=== PATIENT | female | born 1980 | race Caucasian/White ===

== ENCOUNTER 2018-11-02 14:32 | Observation (INO) ==
[2018-11-02] MEDS ORDERED: ONDANSETRON 4 MG/2 ML VIAL IV PRN ×3 (14:47→17:14)
[2018-11-02] MEDS ORDERED: SODIUM CHLORIDE 0.9% 1,000 ML IV STA (14:47)
[2018-11-02] MEDS ORDERED: HYDROmorphone 2 MG/1 ML VIAL IV STA (14:48)
[2018-11-02] MEDS ORDERED: CLINDAMYCIN INJ 50 ML IV ONE (16:20)
[2018-11-02] MEDS ORDERED: LEVOFLOXACIN INJ 100 ML IV ONE (16:20)
[2018-11-02] MEDS ORDERED: HYDROmorphone 2 MG/1 ML VIAL IV PRN (16:59)
[2018-11-02] MEDS ORDERED: SEVOFLURANE 1 UNIT/15 MINUTE INH ONE (17:13)
[2018-11-02] MEDS ORDERED: PROPOFOL 200 MG/20 ML VIAL IV ONE (17:13)
[2018-11-02] MEDS ORDERED: HYDROmorphone 2 MG/1 ML VIAL ONE (17:14)
[2018-11-02] MEDS ORDERED: DEXAMETHASONE 4 MG/1 ML VIAL ONE (17:14)
[2018-11-02] MEDS ORDERED: ePHEDrine 50 MG/ML AMP ONE (17:14)
[2018-11-02] MEDS ORDERED: ONDANSETRON 4 MG/2 ML VIAL ONE ×2 (17:14)
[2018-11-02] MEDS ORDERED: MIDAZOLAM 2 MG/2 ML VIAL ONE (17:14)
[2018-11-02] MEDS ORDERED: fentaNYL 100 MCG/2 ML VIAL ONE (17:14)
[2018-11-02] MEDS ORDERED: SUCCINYLCHOLINE 200 MG/10 ML VIAL ONE (17:15)
[2018-11-02] MEDS ORDERED: KETOROLAC 30 MG/1 ML VIAL ONE (17:15)
[2018-11-02] MEDS ORDERED: NEOSTIGMINE 10 MG/10 ML VIAL ONE (17:15)
[2018-11-02] MEDS ORDERED: LACTATED RINGERS 1,000 ML IV ONE (17:15)
[2018-11-02] MEDS ORDERED: PHENYLEPHRINE 1 MG/10 ML SYRINGE IV ONE (17:15)
[2018-11-02] MEDS ORDERED: ROCURONIUM 100 MG/10 ML VIAL IV ONE (17:15)
[2018-11-02] MEDS ORDERED: GLYCOPYRROLATE 0.4 MG/2 ML VIAL ONE (17:15)
[2018-11-02] MEDS: HYDROmorphone 2 MG/1 ML VIAL IV PRN ×3 (17:23→17:43)
[2018-11-02] MEDS ORDERED: LACTATED RINGERS 1,000 ML IV SCH (18:30)
[2018-11-02] MEDS: CLINDAMYCIN INJ 900 MG in PREMIX 1 EACH IV SCH (20:08)
[2018-11-03] MEDS: CLINDAMYCIN INJ 900 MG in PREMIX 1 EACH IV SCH (03:38)
[2018-11-03] MEDS: SIMETHICONE CHEW 80 MG TABLET PO PRN ×2 (03:55→09:06)
[2018-11-03 05:22] LABS: Hematocrit 32.5 VOL% (35.7-47.0); Hemoglobin 10.3 GM/DL (12.0-16.0); Red Blood Count 3.76 MC/CUMM (3.8-5.5); White Blood Count 15.4 T/CUMM (4-12)
[2018-11-03 05:23] LABS: Basophils % 0.1 % (0.0-0.8); Immature Granulocytes % 0.5 %; Immature Granulocytes Absolute 0.08 #; Lymphocytes # 1.1 10*3/uL (1.4-4.0); Lymphocytes % 7.4 % (21.3-54.2); Mean Corpuscular HGB Conc 31.7 GM/DL (32-36); Mean Corpuscular Hemoglobin 27 PG (27-34); Mean Corpuscular Volume 86.4 FL (87-102); Mean Platelet Volume 10.1 FL (9.6-12.0); Monocytes # 0.4 10*3/uL (0.11-0.8); Monocytes % 2.4 % (1.7-12.7); Neutrophils # 13.8 10*3/uL (1.4-7.4); Neutrophils % 89.6 % (38.7-73.9); Platelet Count 268 T/CUMM (130-400); Red Cell Distribution Width 14.7 % (9.3-17.3)
[2018-11-03 07:49] VITALS: BP 96/48
[2018-11-03] MEDS ORDERED: RHO(D) IMMUNE GLOBULIN 300 MCG SYRINGE IM ONE (07:57)
[2018-11-03] MEDS ORDERED: DOCUSATE SODIUM 100 MG CAPSULE PO SCH (09:00)
== END 2018-11-03 10:30 | disposition home or self-care (01) ==
LOC: N.ED 14:32 → N.EDINP 15:11 → INTOOBSV 15:11 → N.OB 15:56
PROVIDERS: ADMIT Specialist; ATTEND Specialist

== ENCOUNTER 2019-12-15 21:20 | Inpatient (IN) ==
[2019-12-15] MEDS ORDERED: ONDANSETRON 4 MG/2 ML VIAL IV PRN (21:35)
[2019-12-15] MEDS ORDERED: BUTORPHANOL 2 MG/ML VIAL IV PRN (21:35)
[2019-12-15] MEDS ORDERED: MEPERIDINE 50 MG/1 ML VIAL IV PRN (21:35)
[2019-12-15 22:19] LABS: Basophils % 0.4 % (0.0-0.8); Eosinophils # 0.2 10*3/uL (0.0-0.87); Eosinophils % 1.3 % (0.00-10.9); Hematocrit 36.3 VOL% (35.7-47.0); Hemoglobin 11.8 GM/DL (12.0-16.0); Immature Granulocytes % 0.4 %; Immature Granulocytes Absolute 0.05 #; Lymphocytes # 2.1 10*3/uL (1.4-4.0); Lymphocytes % 18.2 % (21.3-54.2); Mean Corpuscular HGB Conc 32.5 GM/DL (32-36); Mean Corpuscular Volume 87.1 FL (87-102); Mean Platelet Volume 10.7 FL (9.6-12.0); Monocytes % 5.7 % (1.7-12.7); Platelet Count 272 T/CUMM (130-400); Red Blood Count 4.17 MC/CUMM (3.8-5.5); Red Cell Distribution Width 13.8 % (9.3-17.3); White Blood Count 11.3 T/CUMM (4-12)
[2019-12-15 22:41] LABS: Alanine Aminotransferase 16 U/L (13-56); Albumin 2.5 G/DL (3.4-5.0); Alkaline Phosphatase 102 U/L (45-117); Aspartate Amino Transferase 18 U/L (0-37); Bilirubin,Total < 0.39 MG/DL (0.2-1.0); Blood Urea Nitrogen 10 MG/DL (7-18); Calcium 9.3 MG/DL (8.5-10.1); Estimated Glom Filtration Rate 153 ML/MIN; Glucose 114 MG/DL (74-106); Total Protein 6.6 G/DL (6.4-8.3)
[2019-12-16] MEDS ORDERED: NALOXONE 0.4 MG/ML VIAL IV PRN (07:22)
[2019-12-16] MEDS ORDERED: PROMETHAZINE 25 MG/1 ML VIAL IM PRN (07:22)
[2019-12-16] MEDS ORDERED: diphenhydrAMINE 50 MG/1 ML VIAL IV PRN (07:22)
[2019-12-16] MEDS ORDERED: FAMOTIDINE 20 MG/2 ML VIAL IV ONE (07:22)
[2019-12-16] MEDS ORDERED: CITRIC ACID/SODIUM CITRATE 30 ML UDCUP PO ONE (07:22)
[2019-12-16] MEDS ORDERED: hydrOXYzine HCL 25 MG/1 ML VIAL IM PRN (07:22)
[2019-12-16] MEDS ORDERED: ePHEDrine 50 MG/ML AMP IV PRN ×2 (07:22)
[2019-12-16] MEDS ORDERED: fentaNYL 2 MCG/ROPIV 0.2% EPID 100 ML EPIDURAL SCH (07:30)
[2019-12-16] MEDS: LACTATED RINGERS 1,000 ML IV SCH ×2 (07:42→08:47)
[2019-12-16] MEDS ORDERED: OXYTOCIN/LR 20 UNIT/1,000 ML BAG IV SCH (08:30)
[2019-12-16 10:20] LABS: Apearance,Urine CLEAR (Clear); Bilirubin,Urine Negative (Negative); Blood, Urine Negative (Negative); Glucose,Urine (UA) Negative (Negative); Ketones,Urine 5 mg/dL (Negative); Mucus,Urine Many /LPF (Occasional); Nitrite,Urine Negative (Negative); Protein,Urine Negative; RBC,Urine 3 /HPF (0-4); Squamous Epithelial Cell,Urine Occasional /HPF (0-10); Urine Color Yellow (Yellow); Urine Specific Gravity 1.024 (1.001-1.035); Urine Urobilinogen < 2.0 EU/DL (0.2-1.0); WBC,Urine 2 /HPF (0-6)
[2019-12-16] MEDS ORDERED: TRANEXAMIC ACID 1,000 MG/10 ML VIAL ONE (10:34)
[2019-12-16] MEDS ORDERED: CARBOPROST TROMETHAMINE 250 MCG/ML AMP IM ONE (10:34)
[2019-12-16] MEDS ORDERED: METHYLERGONOVINE 0.2 MG/1 ML AMP ONE (10:34)
[2019-12-16] MEDS ORDERED: miSOPROStoL 200 MCG TABLET ONE (10:34)
[2019-12-16] MEDS ORDERED: OXYTOCIN/LR 20 UNIT/1,000 ML BAG IV ONE ×2 (10:34→10:54)
[2019-12-16] MEDS ORDERED: ACETAMINOPHEN 325 MG TABLET PO PRN (10:54)
[2019-12-16] MEDS ORDERED: HYDROCORTISONE 2.5% RECTAL CREAM 30 GM TUBE TOP PRN (10:54)
[2019-12-16] MEDS ORDERED: BENZOCAINE 20%/MENTHOL 0.5% SPRAY 56 GM CAN TOP PRN (10:54)
[2019-12-16] MEDS ORDERED: LANOLIN 50% CREAM 0.3 OZ TUBE TOP PRN (10:54)
[2019-12-16] MEDS ORDERED: IBUPROFEN 800 MG TABLET PO PRN (10:54)
[2019-12-16] MEDS ORDERED: BISACODYL 10 MG SUPP RECTAL PRN (10:54)
[2019-12-16] MEDS ORDERED: DIPH/TET/ACEL PERT BOOSTER VACCINE 0.5 ML VIAL IM ONE (10:54)
[2019-12-16] MEDS ORDERED: RHO(D) IMMUNE GLOBULIN 300 MCG SYRINGE IM ONE (10:54)
[2019-12-16] MEDS ORDERED: MEASLES/MUMPS/RUBELLA VACCINE 0.5 ML VIAL SUBCUT ONE (10:54)
[2019-12-16] MEDS ORDERED: ONDANSETRON 4 MG/2 ML VIAL IV PRN (10:54)
[2019-12-16] MEDS ORDERED: oxyCODONE/ACETAMINOPHEN 5-325 MG TABLET PO PRN ×2 (10:54)
[2019-12-16] MEDS ORDERED: WITCH HAZEL PADS 100/JAR TOP PRN (10:54)
[2019-12-16] MEDS: DOCUSATE SODIUM 100 MG CAPSULE PO SCH (21:06)
[2019-12-17 06:51] LABS: Basophils % 0.3 % (0.0-0.8); Eosinophils # 0.2 10*3/uL (0.0-0.87); Eosinophils % 1.7 % (0.00-10.9); Hematocrit 36.3 VOL% (35.7-47.0); Hemoglobin 11.2 GM/DL (12.0-16.0); Immature Granulocytes % 0.6 %; Immature Granulocytes Absolute 0.08 #; Lymphocytes # 2.5 10*3/uL (1.4-4.0); Lymphocytes % 18.5 % (21.3-54.2); Mean Corpuscular HGB Conc 30.9 GM/DL (32-36); Mean Corpuscular Volume 90.1 FL (87-102); Mean Platelet Volume 11.1 FL (9.6-12.0); Monocytes % 5.7 % (1.7-12.7); Neutrophils % 73.2 % (38.7-73.9); Platelet Count 251 T/CUMM (130-400); Red Blood Count 4.03 MC/CUMM (3.8-5.5); Red Cell Distribution Width 13.8 % (9.3-17.3); White Blood Count 13.2 T/CUMM (4-12)
[2019-12-17 08:11] VITALS: BP 118/74
[2019-12-17] MEDS: DOCUSATE SODIUM 100 MG CAPSULE PO SCH (08:45)
== END 2019-12-17 16:30 | disposition home or self-care (01) | DRG 807 ==
LOC: N.LDOUT 21:20 → N.LD 21:24 → N.OB 12-16 14:06
PROVIDERS: ADMIT Specialist; ATTEND Specialist